=== PATIENT | female | born 1950 | race Caucasian/White ===

== ENCOUNTER → 2016-11-27 | Outpatient (CLI) | payer MEDICARE, OTHER ==
--- NOTE | 2016-11-27 14:39 | KCIC ---
PROCEDURE Two view chest radiograph. HISTORY Cough. Fever and malaise. Symptoms for 2 weeks. TECHNIQUE Two-view chest radiograph was obtained. COMPARISON None. FINDINGS The lungs are clear. There is no pleural effusion. The heart is not enlarged. There is no heart failure. There is minimal atheromatous disease in the thoracic aorta. There are degenerative changes in the spine. IMPRESSION No acute thoracic findings. Electronically signed by: Cheo Au MD (November 27, 2016 14:38:17)
== END | disposition home or self-care (01) ==
LOC: KCIC 13:05
PROVIDERS: ATTEND Family Medicine
DX: R05 Cough (principal)
CPT/HCPCS: 71020

== ENCOUNTER → 2018-02-03 | Outpatient (CLI) | payer MEDICARE, OTHER | END | disposition home or self-care (01) | LOC: KCIC MAMMO 10:14 | DX: Z12.31 Encounter for screening mammogram for malignant neoplasm of breast (principal) | CPT/HCPCS: 77063; 77067 ==

== ENCOUNTER → 2019-06-15 | Outpatient (CLI) | payer MEDICARE, OTHER ==
--- NOTE | 2019-06-15 16:23 | KCIC ---
EXAM: CHEST 2 VIEWS. HISTORY: Cough. COMPARISON: 12/07/2016. FINDINGS: Frontal and lateral views of the chest are obtained. Opacities in both bases most likely reflect epicardial fat pads and have correlates on prior studies. Atelectasis or mild infiltrate in the lingula cannot be excluded. There is no pneumothorax or pleural effusion. The heart is mildly enlarged. There are atherosclerotic calcifications of the aorta. IMPRESSION: 1. Lingular atelectasis versus mild infiltrate. 2. Additional bibasilar opacities appear stable chronically and most likely reflect epicardial fat pads. 3. Mild cardiomegaly. Electronically signed by: Jose Saucedo MD (06/15/2019 4:20 PM) [facility]
== END | disposition home or self-care (01) ==
LOC: KCIC 13:26
PROVIDERS: ATTEND Family Medicine
DX: R05 Cough (principal); I51.7 Cardiomegaly; I70.0 Atherosclerosis of aorta
CPT/HCPCS: 71046